=== PATIENT | female | born 1950 | race African-American/Black ===

== ENCOUNTER → 2020-08-31 | Outpatient (CLI) | payer MEDICARE, BC ==
[~2020-08-31] MED LIST: KEFLEX500 MG PO; MOTRIN400 MG PO; MOTRIN800 MG PO; NKHM; TRAMADOL HCL50 MG PO
== END | disposition home or self-care (01) ==
LOC: COVID19 08:32
PROVIDERS: ATTEND Internal Medicine
DX: Z20.828 Contact with and (suspected) exposure to other viral communicable diseases (principal)

== ENCOUNTER → 2022-05-22 | Outpatient (CLI) | payer MEDICARE, BC ==
[2022-05-22 08:13] LABS: CREATININE 1.17 mg/dL (0.55-1.02); POTASSIUM 4.6 mmol/L (3.5-5.1)
== END | disposition home or self-care (01) ==
LOC: LAB 07:39
PROVIDERS: ATTEND Internal Medicine
DX: I10 Essential (primary) hypertension (principal); F41.9 Anxiety disorder, unspecified; E78.5 Hyperlipidemia, unspecified

== ENCOUNTER 2023-01-09 18:14 | Emergency (ER) | payer OTHER, MEDICARE, BC ==
[~2023-01-09] VITALS: Ht 175.2 cm; Wt 70.3 kg
[2023-01-10] MEDS ORDERED: TRAMADOL HCL50 MG PO (16:28)
== END 2023-01-09 21:15 | disposition home or self-care (01) ==
LOC: ED 18:14
DX: S66.912A Strain of unspecified muscle, fascia and tendon at wrist and hand level, left hand, initial encounter (principal); S16.1XXA Strain of muscle, fascia and tendon at neck level, initial encounter; S20.212A Contusion of left front wall of thorax, initial encounter; Z88.8 Allergy status to other drugs, medicaments and biological substances; Z98.890 Other specified postprocedural states; V49.40XA Driver injured in collision with unspecified motor vehicles in traffic accident, initial encounter; Y93.89 Activity, other specified; Y92.410 Unspecified street and highway as the place of occurrence of the external cause; Y99.8 Other external cause status

== ENCOUNTER 2023-01-10 15:48 | Emergency (ER) | payer OTHER, MEDICARE, BC ==
[2023-01-10] MEDS ORDERED: TRAMADOL HCL50 MG PO (16:28)
== END 2023-01-10 17:33 | disposition home or self-care (01) ==
LOC: ED 15:48
DX: S29.012A Strain of muscle and tendon of back wall of thorax, initial encounter (principal); Z88.8 Allergy status to other drugs, medicaments and biological substances; Z98.890 Other specified postprocedural states; V89.2XXA Person injured in unspecified motor-vehicle accident, traffic, initial encounter; Y93.89 Activity, other specified; Y92.89 Other specified places as the place of occurrence of the external cause; Y99.8 Other external cause status

== ENCOUNTER → 2023-02-05 | Outpatient (CLI) | payer MEDICARE, BC ==
[2023-02-05 09:55] LABS: BUN 10 mg/dl (9-23); CHLORIDE 106 mmol/L (98-107); CHOLESTEROL 222 mg/dL (<200); LDL CHOLESTEROL 132 mg/dL (9-159); POTASSIUM 4.3 mmol/L (3.4-5.1); TRIGLYCERIDES 136 mg/dl (<150)
== END ==
LOC: LAB 09:06
PROVIDERS: ATTEND Internal Medicine
DX: I10 Essential (primary) hypertension (principal); E78.5 Hyperlipidemia, unspecified

== ENCOUNTER → 2023-10-26 | Outpatient (CLI) | payer MEDICARE, BC ==
[2023-10-26 10:27] LABS: BUN 6 mg/dl (9-23); CHLORIDE 109 mmol/L (98-107); CHOLESTEROL 228 mg/dL (<200); LDL CHOLESTEROL 127 mg/dL (9-159); POTASSIUM 4.4 mmol/L (3.4-5.1); SGPT/ALT 15 U/L (5-49); TRIGLYCERIDES 139 mg/dl (<150)
== END | disposition home or self-care (01) ==
LOC: LAB 09:13
PROVIDERS: ATTEND Internal Medicine
DX: I10 Essential (primary) hypertension (principal); E78.5 Hyperlipidemia, unspecified

== ENCOUNTER → 2024-12-16 | Outpatient (CLI) | payer MEDICARE, BC ==
[2024-12-16 10:06] LABS: BUN 8 mg/dl (9-23); CHLORIDE 107 mmol/L (98-107); CHOLESTEROL 146 mg/dL (<200); LDL CHOLESTEROL 60 mg/dL (9-159); POTASSIUM 3.8 mmol/L (3.4-5.1); SGPT/ALT 14 U/L (5-49); TRIGLYCERIDES 57 mg/dl (<150)
== END | disposition home or self-care (01) ==
LOC: LAB 08:43
PROVIDERS: ATTEND Internal Medicine
DX: I10 Essential (primary) hypertension (principal); E78.5 Hyperlipidemia, unspecified

== ENCOUNTER → 2025-03-26 | Outpatient (CLI) | payer MEDICARE, BC ==
[2025-03-26 08:10] LABS: POTASSIUM 3.8 mmol/L (3.4-5.1)
== END | disposition home or self-care (01) ==
LOC: LAB 07:33
PROVIDERS: ATTEND Internal Medicine
DX: I10 Essential (primary) hypertension (principal); E78.5 Hyperlipidemia, unspecified

== ENCOUNTER → 2025-06-29 | Outpatient (CLI) | payer MEDICARE, BC ==
[2025-06-29 14:01] LABS: BASO # 0.1 10*3/uL (0.0-0.1); BASO % 1.1 % (0.0-1.0); EOS # 0.0 10*3/uL (0.0-0.4); EOS % 0.3 % (1.0-4.0); MEAN CELL VOLUME 87.9 fl (81.0-99.0); MEAN CORPUSCULAR HGB 26.8 pg (27.0-31.0); MEAN PLATELET VOLUME 8.8 fl (9.6-12.3); MONO # 1.0 10*3/uL (0.1-1.0); MONO % 9.1 % (3.0-9.0); NEUT # 7.2 10*3/uL (2.3-7.9); NEUT % 69.1 % (47.0-73.0); NUCLEATED RED BLOOD CELL 0.0 % (0.0-0.0); NUCLEATED RED BLOOD CELL 0.0 10*3/uL (0.0-0.0); PLATELET COUNT AUTOMATED 488 10*3/uL (130-400); RED CELL DISTRI WIDTH 15.9 % (0-14.5)
[2025-06-29 14:33] LABS: BUN 11 mg/dl (9-23); LDH 228 U/L (120-246); SGPT/ALT 19 U/L (5-49)
== END | disposition home or self-care (01) ==
LOC: LAB 13:41
PROVIDERS: ATTEND Internal Medicine Hematology & Oncology
DX: Z01.812 Encounter for preprocedural laboratory examination (principal); C50.411 Malignant neoplasm of upper-outer quadrant of right female breast; D70.1 Agranulocytosis secondary to cancer chemotherapy; T45.1X5A Adverse effect of antineoplastic and immunosuppressive drugs, initial encounter; D64.9 Anemia, unspecified; Z51.11 Encounter for antineoplastic chemotherapy; Z17.0 Estrogen receptor positive status [ER+]; Z45.2 Encounter for adjustment and management of vascular access device; X58.XXXA Exposure to other specified factors, initial encounter; Y93.89 Activity, other specified; Y92.89 Other specified places as the place of occurrence of the external cause; Y99.8 Other external cause status

== ENCOUNTER → 2025-07-27 | Outpatient (CLI) | payer MEDICARE, BC ==
[2025-07-27 09:29] LABS: BASO # 0.1 10*3/uL (0.0-0.1); BASO % 0.8 % (0.0-1.0); EOS # 0.3 10*3/uL (0.0-0.4); EOS % 2.5 % (1.0-4.0); MEAN CELL VOLUME 86.7 fl (81.0-99.0); MEAN CORPUSCULAR HGB 27.1 pg (27.0-31.0); MEAN PLATELET VOLUME 8.5 fl (9.6-12.3); MONO # 1.1 10*3/uL (0.1-1.0); MONO % 10.4 % (3.0-9.0); NEUT # 5.6 10*3/uL (2.3-7.9); NEUT % 54.7 % (47.0-73.0); NUCLEATED RED BLOOD CELL 0.0 % (0.0-0.0); NUCLEATED RED BLOOD CELL 0.0 10*3/uL (0.0-0.0); PLATELET COUNT AUTOMATED 426 10*3/uL (130-400); RED CELL DISTRI WIDTH 16.1 % (0-14.5)
[2025-07-27 10:17] LABS: BUN 8 mg/dl (9-23); LDH 237 U/L (120-246); SGPT/ALT 14 U/L (5-49)
== END | disposition home or self-care (01) ==
LOC: LAB 09:09
PROVIDERS: ATTEND Internal Medicine Hematology & Oncology
DX: Z01.812 Encounter for preprocedural laboratory examination (principal); C50.411 Malignant neoplasm of upper-outer quadrant of right female breast; C50.911 Malignant neoplasm of unspecified site of right female breast; Z51.11 Encounter for antineoplastic chemotherapy; R11.2 Nausea with vomiting, unspecified; D70.1 Agranulocytosis secondary to cancer chemotherapy; D64.9 Anemia, unspecified; T45.1X5D Adverse effect of antineoplastic and immunosuppressive drugs, subsequent encounter; Z45.2 Encounter for adjustment and management of vascular access device; Z17.0 Estrogen receptor positive status [ER+]